=== PATIENT | male | born 2000 | race Two or more races ===

== ENCOUNTER 2019-03-07 06:06 | Emergency (ER) | payer OTHER ==
[2019-03-07 06:52] VITALS: BP 124/86; PULSE 72; TEMP 98.2; BMI 16.9
[2019-03-07] MEDS ORDERED: IBUPROFEN 600 MG TABLET (FP) PO ONE ×2 (07:48→07:59)
--- NOTE | 2019-03-07 07:48 | PDOC ---
History of Present Illness - General Chief Complaint: Pain Stated Complaint: LEFT ARM PAIN Time Seen by Provider: 03/07/19 07:14 - History of Present Illness Initial Comments: Sandhya Lainez is an otherwise healthy 18yo man who presents with left upper arm pain that started last night around 10pm. He reports that he went shopping with friends in the afternoon and the pain started shortly after he got home. He denies carrying anything heavy or any known injury to the arm yesterday. He does report a previous injury in the same location that occurred about 2 years ago during wrestling practice, but he denies any similar activity yesterday. Mr Lainez denies any weakness, numbness, or tingling in the arm, and he has had no difficulty using it. He has not tried any medication for the pain, and he has not noticed that any position or movement makes the pain better or worse. Past History - Past Medical History Allergies/Adverse Reactions: Allergies Allergy/AdvReac Type Severity Reaction Status Date / Time amoxicillin Allergy Mild Rash Verified 03/07/19 07:02 Home Medications: Ambulatory Orders NK [No Known Home Medication] 03/07/19 COPD: No - Psycho Social/Smoking Cessation Hx Smoking History: Never smoked Hx Alcohol Use: No Drug/Substance Use Hx: No Review of Systems - Review of Systems Comments:: General: No fevers, no chills, no weight or appetite change, no malaise HEENT: No changes in vision, no changes in hearing, no congestion, no sore throat CV: No chest pain, no palpitations, no LE edema Pulm: No SOB, no cough, no wheezing GI: No nausea or vomiting, no change in bowel habits, no melena : No frequency, no urgency, no dysuria Musc: No back pain, no joint swelling. See HPI Skin: No rash, no lesions, no erythema Endo: No excessive thirst, no heat/cold intolerance Heme: No unusual bruising or bleeding, no swollen glands Neuro: No syncope, no numbness/tingling, no focal weakness Vasc: No claudication Psych: No recent change in mood, no SI or HI *Physical Exam - Vital Signs Last Vital Signs Temp Pulse Resp BP Pulse Ox 98.2 F 72 18 124/86 99 03/07/19 06:30 03/07/19 06:30 03/07/19 06:30 03/07/19 06:30 03/07/19 06:30 - Physical Exam General: Comfortable, no acute distress HEENT: PERRL, EOMI, MMM, voice normal, normal neck ROM Cards: RRR, no murmur appreciated Pulm: Comfortable on room air, clear to auscultation bilaterally Ext: RUE with mild TTP over bicep. No erythema, no edema, no ecchymosis, no deformity. ROM intact. Strength 5/5 and equal bilaterally Vasc: Extremities WWP. Palpable radial and pedal pulses bilaterally Skin: Normal color, no rashes or lesions Neuro: A&Ox3, CN grossly intact, normal speech, motor/sensory grossly intact and symmetric. Rt hand neurovascularly intact; able to make OK sign, thumbs up, cross fingers Psych: Mood appropriate to situation Medical Decision Making - Medical Decision Making 03/07/19 07:41 Sandhya Lainez is an otherwise healthy 18yo man who presents with left upper arm pain that started last night around 10pm. He denies any injury or functional deficit tot he arm. - No report of trauma, unlikely to be fracture or sprain. Most likely muscle strain with unknown cause - Benign exam. RUE without visible injury. Neurovascularly intact, strength intact, sensation intact - Ibuprofen for pain 03/07/19 09:45 - Pt feeling improved - Will d/c home with PMD follow up Discussed with Dr Sharon Rios PGY2 Discharge - Discharge Information Problems reviewed: Yes Clinical Impression/Diagnosis: Left arm pain Condition: Stable Disposition: HOME - Admission No - Follow up/Referral Referrals: Natalie Pickering MD [Primary Care Provider] - - Patient Discharge Instructions Additional Instructions: Discharge Instructions: You were seen in the emergency department Home Care and Follow Up: - You may use over the counter medications as needed for pain at home. 650- 1000mg acetaminophen (Tylenol) or 600mg ibuprofen (Motrin or Advil) can be used every 6-8 hours. If needed for continued pain, these medications may be alternated every 3-4 hours. For example, if you take ibuprofen at 9am, you may take acetaminophen at noon, ibuprofen at 3pm, etc. - It is strongly recommended that you take ibuprofen with food to help prevent stomach irritation. - Try using an ice pack for 20 minutes every hour or a heating pad for additional pain control. - Do not stop moving around. As much as you can tolerate, continue to do light exercise and stretching exercises. Increase your activity level as much as you can tolerate daily. - If your pain does not improve over the next week, please see your regular doctor for follow up. - Seek immediate medical care if you have significant worsening of your symptoms , you are unable to use your arm, you have any weakness or numbness in your arm or hand, or you have any other medical emergency. - Post Discharge Activity
--- NOTE | 2019-03-07 08:11 | PDOC ---
Attending Attestation - Resident Resident Name: Leatha Rios - ED Attending Attestation I have performed the following: I have examined & evaluated the patient, The case was reviewed & discussed with the resident, I agree w/resident's findings & plan - HPI HPI: 03/07/19 08:10 18 YOM with left arm pain from shoulder to neck, feels like spasms starts at 10pm yesterday, intermittent, radiates between forearm and biceps. Lasts several seconds, resolves spontaneously. No trauma No prior symptoms. No numbness/tinging, weakness, fever or chills. - Physicial Exam PE: 03/07/19 08:11 Agree with the resident's HPI and PE as documented in the electronic medical record. NAD, well appearing, EOMI, PERRL, nl conjunctiva, anicteric; neck supple. lungs clear, RRR, abdomen soft nontender. no rebound, guarding. Back nontender. BERMUDEZ x4, no focal neuro deficits. +left biceps TTP, no skin discoloration, WWP, 2 + pulses throughout, radialis. tendon insertion intact. no distal or proximal LUE tenderness, FROM 03/08/19 12:59 - Medical Decision Making 03/07/19 08:11 Vital Signs Temp Pulse Resp BP Pulse Ox 98.2 F 72 18 124/86 99 03/07/19 06:30 03/07/19 06:30 03/07/19 06:30 03/07/19 06:30 03/07/19 06:30 vitals wnl. neuro vasc intact. no pain. initially had more left biceps tenderness, tendon intact. 5/5 roof tile layer and prox/distal strength, SILT. FROM. given ibuprofen. asymptomatic DC stable condition, rest, avoid stressors or heavy lifting. 03/08/19 12:40
== END 2019-03-07 08:50 | disposition home or self-care (01) ==
LOC: JER 06:06
DX: M79.602 Pain in left arm (principal); Z88.0 Allergy status to penicillin
CPT/HCPCS: 99283-25